=== PATIENT | female | born 2000 | race Caucasian/White ===

== ENCOUNTER 2020-07-26 16:08 | Emergency (ER) | payer MEDICAID, OTHER ==
[~2020-07-26 16:08] MED LIST: Iopamidol-370 76% 500 ML 1 ML ONE
[2020-07-26] MEDS ORDERED: Morphine 4 MG/ML VIAL ONE ×2 (16:47→19:18)
[2020-07-26] MEDS ORDERED: Ondansetron PF 4 MG/2 ML Vial ONE (16:48)
[2020-07-26 17:14] LABS: #Lymphocytes 1.3 thou/uL (1.20-3.40); #Monocytes 0.4 thou/uL (0.11-0.59); #Neutrophils 12.4 thou/uL (1.40-6.50); %Basophils 0.1 % (0.0-1.0); %Eosinophils 0.1 % (0.0-10.0); %Lymphocytes 9.2 % (21.0-51.0); %Monocytes 2.4 % (0.0-10.0); Hemoglobin 14.5 g/dL (12.0-16.0); Mean Corpuscular Hemoglobin 29.7 pg (27.0-31.0); Mean Corpuscular Volume 82.4 fL (78.0-98.0); Mean Platelet Volume 6.3 fL (7.4-10.4); Platelet Count 393 thou/uL (130-400); RBC Distribution Width 11.9 % (11.5-14.5); White Blood Cell (WBC) Count 14.1 thou/uL (4.8-10.8)
[2020-07-26 17:20] LABS: BHCG - Serum Negative (NEGATIVE); Pregs Control Background? CLEAR/WHITE (CLR/WHITE); Pregs Control Bar Appear? YES (CONTROL BAR)
[2020-07-26 17:28] LABS: ALT (SGPT) 15 U/L (8-55); AST (SGOT) 17 U/L (5-34); Albumin 4.2 g/dL (3.5-5.0); Alkaline Phosphatase 95 U/L (40-110); Anion Gap 12 mmol/L (10-20); BUN (Urea Nitrogen) 9 mg/dL (7.0-18.7); Bilirubin, Total 0.5 mg/dL (0.2-1.2); Calc. Creatinine Clearance 0 mL/min (70-130); Calcium 9.2 mg/dL (7.8-10.44); Carbon Dioxide 22 mmol/L (22-29); Chloride 107 mmol/L (98-107); Estimated GFR-MDRD Greater than 90; Globulin 3.7 g/dL (2.4-3.5); Glucose 114 mg/dL (70-105); Potassium 3.7 mmol/L (3.5-5.1); Protein, Total 7.9 g/dL (6.0-8.3); Sodium 137 mmol/L (136-145)
--- NOTE | 2020-07-26 18:22 | CT ---
CT ABDOMEN AND PELVIS WITH IV CONTRAST: 07/26/20 INDICATIONS: Abdominal pain. Liver, spleen, pancreas, unremarkable. Stomach and duodenum unremarkable. Adrenal glands and kidneys unremarkable. Small 1 cm cyst right renal cortex. Small bowel loops appear normal. Appendix appears normal. The transverse colon and left colon are decompressed. Mural thickening cannot be excluded although th e colon is poorly evaluated. Correlate for symptoms of colitis. Images through the pelvis reveal a large partially septated cystic mass measuring 11 to 12 cm greates t dimension. This probably arises from the right ovary. The left ovary appears unremarkable with norm al appearing follicles. The uterus appears normal sized. There is an area of low attenuation in the myometrium measuring 1.8 cm of uncertain significance. Fibroid would be unusual in this aged patient. There is a small amount of free fluid in the cul-de-sac. IMPRESSION: 1. A large partially septated cystic mass in the pelvis measuring up to 12 cm probably of right ovarian origin. 2. An area of low attenuation within the myometrium of the fundus of the uterus which appears to be in the anterior myometrium. This is of indeterminate etiology by CT. 3. Small amount of free fluid in the cul-de-sac. Recommend [employer] consultation. Laparoscopy would probably be necessary For further evaluation of this large cystic mass. Pelvic ultrasound will not add significant addition al information given the size and location of this mass in the upper pelvis/lower abdomen. POS: [facility]W
[2020-07-26 19:09] LABS: Bacteria/HPF None Seen HPF (None Seen); Bilirubin Negative (Negative); Blood, Urine 1+ (Negative); Clarity Extra Turbid (Clear); Glucose, Urine (Dipstick) Normal (Negative); Ketone, Urine 20 mg/dL (Negative); Leukocyte Negative Leu/uL (Negative); Nitrite Negative (Negative); Protein, Urine (Dipstick) Negative (Neg-Trace); Specific Gravity, Urine 1.036 (1.002-1.036); Urobilinogen Normal mg/dL (Less than 2); WBC/HPF None Seen HPF (0-3)
[2020-07-26 19:14] LABS: Squamous Epithelial 0-3 HPF (0-3)
--- NOTE | 2020-07-26 20:25 | ULT ---
Ultrasound of thepelvis: 07/26/2020 COMPARISON:None available HISTORY:Evaluate ovarian cyst seen on prior CT TECHNIQUE: Multiplanar grayscale sonographic imaging of thepelvis with transabdominal and endovaginal imaging. Ovaries are assessed with Doppler interrogation including color flow and spectral analysis. FINDINGS:The uterus measures 7.8 x 4.1 x 5.2 cm with a normal endometrial stripe of 6 mm. There is minimal free fluid in the pelvic cul-de-sac. The left ovary measures 4.6 x 2.3 x 3.9 cm and demonstrates normal blood flow without evidence for ma ss. There is a large septated cyst in the right adnexal region measuring approximately 9.3 x 11.8 x 5.2 c m. There may be a thin rim of right ovarian tissue but the large size of the mildly complex right ovarian cyst limits assessment of the right ovary. Blood flow could not be documented within right ov jimenez tissue and thus ovarian torsion cannot be fully excluded. However, it is difficult to even visualize right ovarian tissue secondary to the large size of the ovarian cyst and thus lack of blood flow may be technical in nature. Clinical correlation is required. IMPRESSION:Large cystic lesion associated with the right ovary/adnexa. Please see above discussion. Imelda RIOJAS consultation advised.
== END 2020-07-26 21:00 | disposition home or self-care (01) ==
LOC: ERS 16:08
DX: N83.202 Unspecified ovarian cyst, left side (principal)
CPT/HCPCS: 74177; 76856; 80053; 81003; 81015; 83605; 84703; 85025; 96374; 96375; 96376; J2270; J2405; Q9967